=== PATIENT | female | born 1985 | race Caucasian/White ===

== ENCOUNTER 2017-01-12 07:06 | Emergency (ER) | payer BC ==
[2017-01-12] MEDS ORDERED: TETRACAINE 0.5% STERI-UNIT SOL OP STA (07:14)
[2017-01-12] MEDS ORDERED: Fluor-I-Strip/Ful-Flo OP ONE (07:14)
[2017-01-12 07:17] VITALS: BP 107/64; PULSE 70; O2SAT 98
--- NOTE | 2017-01-12 07:26 | ERPHSYRPT ---
- History of Present Illness Time Seen by Provider: 01/12/17 07:21 Source: patient Exam Limitations: no limitations Patient Subjective Stated Complaint: lt eye irritation Triage Nursing Assessment: lt eye irritation intermittently for 1 week. redness to sclera. yellow drainage noted. c/o severe itching. 21 weeks Physician History: patient presents with eye irritation and redness for 1 day. Patient states that she's noticed some itching to her left eye for approximately 5-7 days and have been rubbing at it. She notice increased eye redness with yellow discharge that began yesterday. No one else in house with similar symptoms. Patient denies anyl eft eye pain or blurred vision. She denies any recent illnesses, fever, chills or any other systemic symptoms. Patient is also 21 weeks without any complications. Timing/Duration: yesterday Location: left eye Severity: mild Apparent Injury: no Associated Symptoms: redness, matting, eyelid swelling, other (yellow discharge) Visual Assistive Devices: None Chemical Exposure: No Trauma: No Welding Arc/Tanning Bed Exposure: No Allergies/Adverse Reactions: Sulfa (Sulfonamide Antibiotics) Allergy (Intermediate, Verified 01/12/17 07:17) Rash swelling Home Medications: Escitalopram Oxalate [Lexapro] 5 mg PO DAILY 10/05/14 [History] Vits W-Ca,Fe,FA(<1Mg) [] 1 each PO DAILY 10/10/14 [History] Hx Tetanus, Diphtheria Vaccination/Date Given: Yes Hx Influenza Vaccination/Date Given: No Hx Pneumococcal Vaccination/Date Given: No Immunizations Up to Date: Yes - Review of Systems Constitutional: No Fever, No Chills Eyes: Discharge, Eye Pain, Eye Redness, Itchy, Tearing, No Photophobia, No Vision Changes, No Double Vision, No Foreign Body Sensation Ears, Nose, & Throat: No Symptoms Respiratory: No Cough, No Dyspnea Cardiac: No Chest Pain, No Edema, No Syncope Abdominal/Gastrointestinal: No Abdominal Pain, No Nausea, No Vomiting, No Diarrhea Genitourinary Symptoms: No Dysuria Musculoskeletal: No Back Pain, No Neck Pain Skin: No Rash Neurological: No Dizziness, No Focal Weakness, No Sensory Changes Psychological: No Symptoms Endocrine: No Symptoms All Other Systems: Reviewed and Negative - Past Medical History Pertinent Past Medical History: No Psycho-Social History: Depression - Past Surgical History Past Surgical History: No - Social History Smoking Status: Never smoker Exposure to second hand smoke: No Drug Use: none Patient Lives Alone: No - Female History Hx Last Menstrual Period: 10 Expected Date of Delivery: 05/26/17 - Nursing Vital Signs Nursing Vital Signs: Initial Vital Signs Temperature 98.5 F Temperature Source Oral Pulse Rate 70 Respiratory Rate 18 Blood Pressure [Right Arm] 107/64 Pain Intensity 0 - Physical Exam General Appearance: no apparent distress Vision Acuity Degree Evaluation Phase: Uncorrected Vision Acuity Right Eye: 20/50 Vision Acuity Left Eye: 20/50 Eye Exam: right eye: normal inspection, left eye: conjunctival inflammation, erythema, exudate, eyelid inflammation, bilateral eye: PERRL, EOMI Ears, Nose, Throat Exam: normal ENT inspection Neck Exam: normal inspection Respiratory Exam: normal breath sounds Cardiovascular Exam: regular rate/rhythm Extremity Exam: normal inspection, normal range of motion Neurologic: alert, oriented x 3, cooperative, family coach II-XII nml as tested, normal mood/affect Skin Exam: normal color Lymphatic: No adenopathy SpO2 Interpretation: normal SpO2: 98 Oxygen Delivery: Room Air Ordered Tests: Medication Summary Discontinued Medications Generic Name Dose Route Start Last Admin Trade Name Freq PRN Reason Stop Dose Admin Fluorescein Sodium 1 mg 01/12/17 07:14 Dakgp-G-[id number]/Ful-Contreras OP 01/12/17 07:15 STAT ONE Tetracaine HCl 4 ml 01/12/17 07:14 Tetracaine 0.5% Steri-Unit Barbara OP 01/12/17 07:15 STAT STA - Progress Will see patient in: office Counseled pt/family regarding: diagnosis - Departure Time of Disposition: 07:27 Departure Disposition: Home Clinical Impression: Left conjunctivitis Condition: Stable Critical Care Time: No Instructions: Conjunctivitis Additional Instructions: RX: Ciprofloxacin Return for worse eye pain, discharge, decreased vision or any problems. Prescriptions: Ciprofloxacin 0.3% Ophth [Ciloxan OPHTH] 1 - 2 ml OP [id number] #1 bottle
== END 2017-01-12 07:50 | disposition home or self-care (01) ==
LOC: ED 07:06
DX: H10.89 Other conjunctivitis (principal)
CPT/HCPCS: 99281

== ENCOUNTER 2017-05-20 05:56 | Observation (INO) | payer BC ==
[2017-05-20 06:31] VITALS: PULSE 85
[2017-05-20 08:09] VITALS: BP 105/63
== END 2017-05-20 09:10 | disposition home or self-care (01) ==
LOC: OB 05:56
PROVIDERS: ADMIT Family Medicine; ATTEND Family Medicine
DX: Z34.83 Encounter for supervision of other normal pregnancy, third trimester (principal)
CPT/HCPCS: 80307; G0378

== ENCOUNTER 2017-05-20 22:28 | Inpatient (IN) | payer BC ==
[2017-05-20] MEDS ORDERED: XYLOCAINE 1% HCL 20 ML MDV IJ PRN (23:13)
[2017-05-20] MEDS ORDERED: Lactated Ringers 1,000 ML IV ONE (23:15)
[2017-05-20] MEDS ORDERED: OB EPIDURAL NAROPIN/SUFENTANIL IN NACL EPIDURAL PRN (23:15)
[2017-05-20] MEDS ORDERED: Lactated Ringers 1,000 ML IV SCH (23:30)
[2017-05-20] MEDS ORDERED: PITOCIN 30 UNITS/ LR 500 ML 500 ML IV SCH (23:30)
[2017-05-21 00:03] LABS: BASOPHIL % 0.1 % (0.0-0.4); Eosinophil % 0.5 % (0.00-5.0); Granulocytes % 71.1 % (36.0-66.0); Lymphocytes % 19.8 % (24.0-44.0); Mean Corpuscular Hemoglobin 30.3 pg (26-32); Mean Platelet Volume 11.3 fl (6-9.5); Monocytes % 8.5 % (0.0-12.0); Platelet Count 196 K/mm3 (150-450); Red Blood Count 4.09 M/mm3 (4.1-5.4); Red Cell Distribution Width 13.1 % (11.5-14.0); White Blood Count 11.6 K/mm3 (4.0-10.5)
[2017-05-21] MEDS: Ephedrine Sulfate 50 MG/ML IV PRN ×4 (01:42→04:12)
[2017-05-21] MEDS ORDERED: Ephedrine Sulfate 50 MG/ML IV SCH (02:08)
[2017-05-21 06:30] VITALS: O2SAT 99
[2017-05-21] MEDS ORDERED: CLARITIN 10 MG PO PRN (06:53)
[2017-05-21] MEDS ORDERED: TYLENOL EXTRA STRENGTH 500 MG PO PRN (10:04)
[2017-05-21] MEDS ORDERED: TUCKS TP PRN (10:04)
[2017-05-21] MEDS ORDERED: NORCO 5/325 MG PO PRN (10:04)
[2017-05-21] MEDS: Colace 100 MG PO SCH (22:05)
[2017-05-22 05:18] LABS: BASOPHIL % 0.2 % (0.0-0.4); Eosinophil % 1.4 % (0.00-5.0); Granulocytes % 70.4 % (36.0-66.0); Lymphocytes % 20.6 % (24.0-44.0); Mean Cell Volume 90.7 fl (78-100); Mean Platelet Volume 10.4 fl (6-9.5); Monocytes % 7.4 % (0.0-12.0); Platelet Count 146 K/mm3 (150-450); Red Blood Count 3.77 M/mm3 (4.1-5.4); Red Cell Distribution Width 13.2 % (11.5-14.0); White Blood Count 12.1 K/mm3 (4.0-10.5)
[2017-05-22 05:19] LABS: Mean Corpuscular Hemoglobin 29.9 pg (26-32)
[2017-05-22] MEDS ORDERED: FERREX 150 PO SCH (10:00)
[2017-05-22] MEDS: Colace 100 MG PO SCH ×2 (10:05→22:30)
[2017-05-22] MEDS: MOTRIN 400 MG PO PRN ×2 (14:35→22:30)
--- NOTE | 2017-05-23 08:25 | PCM.DS ---
Discharge Summary Date of Admission: 05/20/17 23:15 Admitting Physician: LA OCHOA Consults: Consults on Case 05/20/17 23:15 Notify Anesthesia Provider PRN Primary Care Provider: LA OCHOA Allergies Allergies Sulfa (Sulfonamide Antibiotics) Allergy (Intermediate, Verified 01/12/17 07:17) Rash swelling Hospital Summary - Hospital Course Hospital Course: patient delivered a viable female infant over intact perineum with spontaneous labor. no complications or problems - Vitals & Intake/Output Vital Signs: Vital Signs Temperature 98.2 F 05/23/17 02:00 Pulse Rate 68 05/23/17 02:00 Respiratory Rate 16 05/22/17 20:00 Blood Pressure 115/70 05/23/17 02:00 O2 Sat by Pulse Oximetry 99 05/22/17 02:00 Intake & Output: Intake & Output 05/20/17 05/21/17 05/22/17 05/23/17 11:59 11:59 11:59 11:59 Intake Total 2125 1500 Output Total 1726 Balance 399 1500 Weight 92.533 kg - Lab Result Diagrams: 05/22/17 05:13 Discharge Exam General Appearance: no apparent distress, alert Neurologic Exam: alert, oriented x 3, cooperative, normal mood/affect, nml cerebellar function, sensation nml, No motor deficits Skin Exam: normal color, warm, dry Respiratory Exam: normal breath sounds, lungs clear, No respiratory distress Cardiovascular Exam: regular rate/rhythm, normal heart sounds Gastrointestinal/Abdomen Exam: soft, No tenderness, No mass Extremity Exam: normal inspection, normal range of motion Final Diagnosis/Problem List - Final Discharge Diagnosis/Problem (1) Vaginal delivery Current Visit: No Status: Acute - Discharge Disposition: Home, Self-Care Condition: Stable Prescriptions: Continue Escitalopram Oxalate [Lexapro] 5 mg PO DAILY Vits W-Ca,Fe,FA(<1Mg) [] 1 each PO DAILY
[2017-05-23 08:54] VITALS: BP 121/76; PULSE 65
== END 2017-05-23 10:40 | disposition home or self-care (01) | DRG 775 ==
LOC: UNDOADMOB 22:28 → OB 22:28 → INTOOBSV 23:15 → UNDOADMOB 23:15 → OB 23:15 → OBSVTOIN 23:15 → INTOOBSV 05-21 07:50 → OBSVTOIN 05-21 07:50
PROVIDERS: ADMIT Family Medicine; ATTEND Family Medicine
PROC: 10E0XZZ Delivery of Products of Conception, External Approach (ICD-10-PCS; principal; 2017-05-21)
DX: O80 Encounter for full-term uncomplicated delivery (principal); Z3A.39 39 weeks gestation of pregnancy; Z37.0 Single live birth
CPT/HCPCS: 01967; 36415; 80307; 85025; G0378; J2590; J2795; A9270-GY